=== PATIENT | male | born 1980 | race Caucasian/White ===

== ENCOUNTER 2019-04-13 10:32 | Emergency (ER) | payer BC, OTHER ==
[2019-04-13] MEDS ORDERED: Ticagrelor 90 MG Tab PO ONE (10:34)
[2019-04-13] MEDS ORDERED: Famotidine 20 MG/2 ML SDV IVPUSH ONE (10:34)
--- NOTE | 2019-04-13 10:34 | EDM.PDOC ---
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 recommended to be performed by his new primary care provider, which he/she plans to establish [facility]. Work excuse and activity restrictions were provided and extensively discussed. Patient was symptom-free at time of discharge with a possible strong anxiety component to his current symptoms. Qualifiers: Chest pain type: unspecified Qualified Code(s): R07.9 - Chest pain, unspecified (2) Mixed anxiety depressive disorder SNOMED Code(s): 185722283 Code(s): F41.8 - OTHER SPECIFIED ANXIETY DISORDERS Status: Acute Priority : High Annotation/Comment:: Currently under medical therapy with moderate control. Additional support was provided especially in light of patient's significant psychiatric history as above. Note evidence of hyperventilation with hand cramps and paresthesias symptoms completely resolved with IV Ativan therapy. Continue to observe closely by his regular providers. Note that the patient started his sexual transition in July 2018 and is essentially complete, although he did discontinue his progesterone therapy a couple of weeks ago as above. He has not recently changed his name to a female name to this point, however. (3) Caries SNOMED Code(s): 04160743 Code(s): K02.9 - DENTAL CARIES, UNSPECIFIED Status: Chronic Priority: Medium Annotation/Comment:: Long history of caries per our medical records with the patient not having seen his dentist or oral surgeon to this point despite previous recommendations. Amoxicillin was prescribed. No evidence of purulent drainage at this time, although apparent history of this in the recent past. Follow-up with dentist/oral surgeon [facility] was once again strongly encouraged. (4) Tobacco abuse counseling SNOMED Code(s): 916378502, 155844408, [id number] Code(s): Z71.6 - TOBACCO ABUSE COUNSELING Status: Chronic Priority: Medium Annotation/Comment:: Tobacco cessation strongly encouraged with information provided at discharge. (5) Headache SNOMED Code(s): 95990213 Code(s): R51 - HEADACHE Status: Acute Priority: High Onset Date: Annotation/Comment:: Moderate tension headache at this time with initial nausea. Continue to observe closely for now with anxiety component also present and no evidence of neurological deficits, etc. Symptomatic relief as per discharge instructions. Qualifiers: Headache type: tension-type Headache chronicity pattern: acute headache Intractability: not intractable Qualified Code(s): G44.209 - Tension-type headache, unspecified, not intractable - Problem List Review Problem List Initiated/Reviewed/Updated: Yes - My Orders Last 24 Hours: My Active Orders 04/13/19 10:34 Cardiac Monitoring [RC] . DIRECTED EKG Documentation Completion [RC] ASDIRECTED Oxygen Therapy, ED [RC] PRN Peripheral IV Care [RC] . DIRECTED Pulse Oximetry [RC] CONTINUOUS Up With Assistance [RC] PFP Vital Signs [RC] PFP Chest 1V Frontal [CR] Stat Obtain Past Medical Record [OM.PC] Urgent Peripheral IV Insertion Adult [OM.PC] Stat Resuscitation Status Stat - Assessment/Plan Last 24 Hours: My Active Orders 04/13/19 10:34 Cardiac Monitoring [RC] . DIRECTED EKG Documentation Completion [RC] ASDIRECTED Oxygen Therapy, ED [RC] PRN Peripheral IV Care [RC] . DIRECTED Pulse Oximetry [RC] CONTINUOUS Up With Assistance [RC] PFP Vital Signs [RC] PFP Chest 1V Frontal [CR] Stat Obtain Past Medical Record [OM.PC] Urgent Peripheral IV Insertion Adult [OM.PC] Stat Resuscitation Status Stat Assessment:: As above Plan: As above. Extensive precautions were given to the patient and mother, who are in agreement with the treatment plan. See Patient Instructions for further treatment and plan.
[2019-04-13] MEDS ORDERED: LORazepam 2 MG/ML SDV IVPUSH ONE (10:37)
[2019-04-13] MEDS: Sodium Chloride 0.9% 10 ML Syringe FLUSH PRN ×2 (10:44→10:48)
[2019-04-13 11:10] LABS: CHLORIDE,CL 102 mmol/L (98-107); SODIUM,NA 136 mmol/L (136-145)
[2019-04-13 11:47] VITALS: BP 123/76; PULSE 88
== END 2019-04-13 12:20 | disposition home or self-care (01) ==
LOC: LL.ED 10:32
DX: R07.9 Chest pain, unspecified (principal); F41.8 Other specified anxiety disorders; K02.9 Dental caries, unspecified; Z71.6 Tobacco abuse counseling; R51 Headache; F17.210 Nicotine dependence, cigarettes, uncomplicated; Z79.899 Other long term (current) drug therapy
CPT/HCPCS: 36415; 71045; 80053; 82550; 82553; 83605; 83735; 83880; 84443; 84484; 84550; 85025; 85379; 85610; 85730; 93005; 96374; 96375; 99285; A9270; J2060; J3490